=== PATIENT | male | born 1960 | race Caucasian/White ===

== ENCOUNTER 2020-05-02 04:15 | Emergency (ER) | payer MEDICAID, OTHER ==
[~2020-05-02] VITALS: Ht 165.1 cm; Wt 68.9 kg
[2020-05-02] MEDS ORDERED: IBUPROFEN 600 MG TABLET PO ONE (04:30)
[2020-05-02] MEDS ORDERED: IBUPROFEN 600 MG TABLET ONE (04:36)
--- NOTE | 2020-05-02 04:38 | NUR ---
Patient discharged to home in stable condition. Written and verbal after care instructions given. Patient verbalizes understanding of instructions. Stressed follow up or return to ER for worsening s/s.
[2020-05-02 04:40] VITALS: BP 160/111
== END 2020-05-02 04:40 | disposition home or self-care (01) ==
LOC: ER 04:20
DX: H61.23 Impacted cerumen, bilateral (principal)
CPT/HCPCS: A4663